=== PATIENT | male | born 1945 | race Caucasian/White ===

== ENCOUNTER 2016-12-06 11:24 | Emergency (ER) | payer MEDICARE ==
[2016-12-06 13:02] VITALS: BP 126/67
--- NOTE | 2016-12-06 13:19 | UC ---
Respiratory Complaint HPI - HPI Summary HPI Summary: 71 YEAR OLD MALE WITH COUGH. CHEST CONGESTION, COUGHING, SINUS CONGESTION. PRODUCTIVE COUGH- GREEN SPUTUM. COUGHING ALL NIGHT , NOT SLEEPING. DENIES CHILLS OR FEVER. ONSET OF SYMPTOMS ABOUT 5 DAYS AGO. [ End ] - History of Current Complaint Chief Complaint: UCRespiratory Stated Complaint: COUGH,CONGESTION Time Seen by Provider: 12/06/16 12:51 Hx Obtained From: Patient Onset/Duration: Gradual Onset Timing: Constant Severity Initially: Mild Severity Currently: Moderate Character: Cough: Productive Associated Signs And Symptoms: Positive: Negative, URI, Nasal Congestion, Hoarseness, Sinus Discomfort. Negative: Pleuritic Chest Pain, Wheezing, Edema - Allergies/Home Medications Allergies/Adverse Reactions: Allergies Allergy/AdvReac Type Severity Reaction Status Date / Time No Known Allergies Allergy Verified 12/06/16 12:51 Home Medications: Home Medications Aspirin [Aspirin Childrens 81 MG] 81 mg PO DAILY 12/06/16 [History Confirmed 09/15] Atorvastatin* [Lipitor 20 MG*] 20 mg PO DAILY 12/06/16 [History Confirmed ] Calcium Carbonate-Cholecalcife [Calcium 1000 + D 1000-800 mg-Unit] 1 tab PO DAILY 12/06/16 [History Confirmed 12/06/16] Enalapril TAB* [Vasotec TAB*] 2.5 mg PO DAILY 12/06/16 [History Confirmed ] Glucosamine-Chondroitin [Glucosamine & Chondroitin 500-400 mg] 1 cap PO BID 09/15 [History Confirmed 12/06/16] Sitagliptin Phosphate [Januvia] 100 mg PO DAILY 12/06/16 [History Confirmed 09/15] Tamsulosin CAP* [Flomax CAP*] 0.4 mg PO DAILY 12/06/16 [History Confirmed ] metFORMIN* [Glucophage 1000 MG TAB *] 1,000 mg PO BID 12/06/16 [History Confirmed 12/06/16] PMH/Surg Hx/FS Hx/Imm Hx Previously Healthy: Yes Endocrine History: Diabetes, Dyslipidemia Cardiovascular History: Hypertension - Surgical History Surgical History: None - Family History Known Family History: Positive: None - Social History Occupation: Retired Lives: With Family Alcohol Use: None Substance Use Type: None Smoking Status (MU): Never Smoked Tobacco - Immunization History Most Recent Influenza Vaccination: OCT 2016 Review of Systems ENT: Nasal Discharge, Sinus Congestion, Sinus Pain/Tenderness Respiratory: Cough Is Patient Immunocompromised?: No All Other Systems Reviewed And Are Negative: Yes Physical Exam Triage Information Reviewed: Yes Appearance: Well-Appearing, No Pain Distress, Well-Nourished Vital Signs: Initial Vital Signs Temp 98.6 F 12/06/16 12:55 Pulse 94 12/06/16 12:55 Resp 20 12/06/16 12:55 BP 126/67 12/06/16 12:55 Pulse Ox 98 12/06/16 12:55 Eye Exam: Normal ENT Exam: Normal ENT: Positive: Nasal congestion, Nasal drainage, TMs normal. Negative: Tonsillar swelling, Tonsillar exudate Dental Exam: Normal Neck exam: Normal Neck: Positive: 1 Respiratory Exam: Normal Cardiovascular Exam: Normal Musculoskeletal Exam: Normal Neurological Exam: Normal Psychological Exam: Normal Skin Exam: Normal UC Diagnostic Evaluation - Laboratory O2 Sat by Pulse Oximetry: 98 Respiratory Course/Dx - Course Course Of Treatment: Viral at this time -- if Sx worsen in 3-4 days then start augmentin - Differential Dx/Diagnosis Differential Diagnosis/HQI/PQRI: Lower Resp Infection, Sinusitis Provider Diagnoses: Sinusitis Discharge - Discharge Plan Condition: Good Disposition: HOME Prescriptions: Amoxicillin/Clavulanate TAB* [Augmentin TAB 875*] 875 mg PO BID #20 tab Fluticasone NASAL SPRAY 50MCG* [Flonase NASAL SPRAY 50MCG*] 2 spray BOTH NARES DAILY #1 btl Patient Education Materials: Sinusitis (ED) Additional Instructions: PLEASE START CLARITIN AND FLONASE IN THE am AND BENADRYL AND NASAL SALINE IRRIGATION IN THE PM . If 3 days from now your sinus pressure is worsened then at that time you may start the antibiotics. Please follow up with your PCP in 3- 4 days
== END 2016-12-06 13:38 | disposition home or self-care (01) ==
LOC: UCCORT 11:24
DX: J32.9 Chronic sinusitis, unspecified (principal); E11.9 Type 2 diabetes mellitus without complications; E78.5 Hyperlipidemia, unspecified; I10 Essential (primary) hypertension; Z79.84 Long term (current) use of oral hypoglycemic drugs
CPT/HCPCS: 99202; G0463